=== PATIENT | female | born 1960 | race African-American/Black ===

== ENCOUNTER 2016-06-05 19:29 | Outpatient (CLI) | payer BC | END 2016-06-05 21:23 | disposition home or self-care (01) | LOC: SCA 19:29 | PROVIDERS: ATTEND Internal Medicine | DX: Z01.818 Encounter for other preprocedural examination (principal); R05 Cough; M25.562 Pain in left knee | CPT/HCPCS: 71020-TC; 93005 ==

== ENCOUNTER 2017-01-10 14:13 | Outpatient (CLI) | payer BC | END 2017-01-10 18:35 | disposition home or self-care (01) | LOC: SCA 14:13 | DX: Z01.818 Encounter for other preprocedural examination (principal) | CPT/HCPCS: 93005 ==

== ENCOUNTER 2017-03-01 15:13 | Outpatient (CLI) | payer OTHER | END 2017-03-01 19:42 | disposition home or self-care (01) | LOC: SRD 15:13 | DX: Z01.818 Encounter for other preprocedural examination (principal); R05 Cough | CPT/HCPCS: 71020-TC; 93005 ==